=== PATIENT | male | born 1940 | race Caucasian/White ===

== ENCOUNTER 2019-02-18 10:56 | Emergency (ER) | payer MEDICARE, OTHER ==
[~2019-02-18] VITALS: Ht 177.8 cm; Wt 95.3 kg
--- NOTE | 2019-02-18 11:12 | NUR ---
Dr Casiano at the bedside for MSE.
[2019-02-18] MEDS ORDERED: AMLO5TAB9 PO (11:26)
[2019-02-18] MEDS ORDERED: ASPI81TA31 PO (11:26)
[2019-02-18] MEDS ORDERED: GABA-532 PO (11:26)
[2019-02-18] MEDS ORDERED: ACET-2154 PO (11:26)
[2019-02-18] MEDS ORDERED: OLAN5TAB3 PO (11:26)
[2019-02-18] MEDS ORDERED: TRAZ-214 PO (11:26)
[2019-02-18] MEDS ORDERED: CLOP75TA15 PO (11:26)
[2019-02-18] MEDS ORDERED: DOCU250C15 PO (11:26)
[2019-02-18] MEDS ORDERED: LISI-603 PO (11:26)
[2019-02-18] MEDS ORDERED: LORA0.5T PO (11:26)
[2019-02-18] MEDS ORDERED: LEVE1000 PO (11:26)
[2019-02-18] MEDS ORDERED: IV NORMAL SALINE 500 ML BAG IV ONE (11:30)
[2019-02-18 11:51] LABS: BASOPHILS % (AUTO) 0.3 % (0.0-2.0); EOSINOPHILS # (AUTO) 0.2 K/uL (0.0-0.7); EOSINOPHILS % (AUTO) 2.8 % (0.0-7.0); HEMATOCRIT 36.2 % (36.7-47.1); LYMPHOCYTES # (AUTO) 1.6 K/uL (20.0-40.0); LYMPHOCYTES % (AUTO) 23.3 % (20.5-51.5); MEAN CORPUSCULAR HGB CONC 33 g/dL (32.5-36.3); MEAN CORPUSCULAR VOLUME 96.6 fL (73.0-96.2); MONOCYTES # (AUTO) 0.5 K/uL (2.0-10.0); MONOCYTES % (AUTO) 7.8 % (0.0-11.0); NEUTROPHILS # (AUTO) 4.6 K/uL (1.8-8.9); NEUTROPHILS % (AUTO) 65.8 % (38.5-71.5); PLATELET COUNT (AUTO) 301 K/uL (152-348); RED BLOOD CELL COUNT(AUTO) 3.74 MIL/uL (4.06-5.63); WHITE BLOOD COUNT (AUTO) 7.1 K/uL (3.6-10.2)
[2019-02-18 12:06] LABS: CARBON DIOXIDE 24 mmol/L (21-32); CHLORIDE 107 mmol/L (98-107); CREATININE 1.5 mg/dL (0.6-1.3); GLUCOSE 105 mg/dL (74-106); POTASSIUM 4.3 mmol/L (3.5-5.1); UREA NITROGEN, BLOOD 17 mg/dL (7-18)
--- NOTE | 2019-02-18 12:07 | NUR ---
Reposition for comfort, all belongings within reach.
[2019-02-18 12:21] LABS: ALANINE AMINOTRANSFERASE 21 U/L (16-63); ALKALINE PHOSPHATASE 93 U/L (50-136); ASPARTATE AMINOTRANSFERASE 17 U/L (15-37); BILIRUBIN,DIRECT 0.1 mg/dL (0.0-0.2); BILIRUBIN,TOTAL 0.3 mg/dL (0.2-1.0); TOTAL PROTEIN, SERUM 7.9 g/dL (6.4-8.2)
--- NOTE | 2019-02-18 12:24 | NUR ---
Patient is resting comfortably in bed with eyes closed. NAD noted.
[2019-02-18] MEDS ORDERED: QUETIAPINE FUMARATE 25 MG TABLET PO ONE (12:30)
[2019-02-18] MEDS ORDERED: QUETIAPINE FUMARATE 25 MG TABLET ONE (12:33)
--- NOTE | 2019-02-18 12:37 | NUR ---
Place a call to Bree Sandoval, Trip #[id number].
--- NOTE | 2019-02-18 12:44 | NUR ---
Lunch tray provided, pt ate w/o difficulty and good appetite.
--- NOTE | 2019-02-18 15:27 | NUR ---
Report given to community health nurse for transfer, Pt left [facility] via gurney in stable condition. Patient discharged to home in stable conditon. Written and verbal after care instructions given. Patient verbalizes understanding of instructions.
[2019-02-18 15:37] VITALS: BP 93/59
== END 2019-02-18 15:38 | disposition home or self-care (01) ==
LOC: ER 10:56
DX: F03.90 Unspecified dementia, unspecified severity, without behavioral disturbance, psychotic disturbance, mood disturbance, and anxiety (principal); R06.02 Shortness of breath; R05 Cough; R53.1 Weakness; F41.9 Anxiety disorder, unspecified; I10 Essential (primary) hypertension; Z86.73 Personal history of transient ischemic attack (TIA), and cerebral infarction without residual deficits; Z79.82 Long term (current) use of aspirin; Z79.899 Other long term (current) drug therapy
CPT/HCPCS: 36415; 70030-TC; 71045; 83605; 85025; 85610; 87040; 93005; A4663; J7030